=== PATIENT | male | born 1945 | race Caucasian/White ===

== ENCOUNTER → 2017-12-28 | Outpatient (CLI) | payer BC, MEDICARE ==
[2013-07-25 22:16] VITALS: BP 138/65
[~2017-12-28] MED LIST: ASPI325T8 PO; GLIM1TAB2 PO; LISI10TA2 PO; METF500T16 PO; MULT-246 PO; OMEG500C PO; SIMV40TA3 PO
--- NOTE | 2017-12-28 16:56 | RAD ---
Examination: Ultrasound testis HISTORY: History of testicular pain COMPARISON: 10/04/2013 FINDINGS: The right testis measures 3.9 x 2.7 x 2.0 cm. The left testis measures 3.3 x 2.2 x 1.8 cm. 4.8 mm cystic structures identified in the right epididymis. 2.8 cm cystic structure with echogenicities identified in the left epididymis. Small cystic changes identified in the left testis probably intracuticular testicular cysts. Multiple tortuous structures identified superior to the left testis in the scrotal region likely varicocele. Blood flow identified in the right and left testis. IMPRESSION: 1. 2.8 cm cyst identified in the left epididymis and could be a spermatocele or epididymal cyst. 2. Left-sided varicocele. 3. Tiny right epididymal head cyst. Electronically signed by: Stephen Adair MD (12/28/2017 4:53 PM) [place] [id number]
== END | disposition home or self-care (01) ==
LOC: US 12:23
PROVIDERS: ATTEND Family Medicine
DX: I86.1 Scrotal varices (principal)
CPT/HCPCS: 76870

== ENCOUNTER → 2018-01-06 | Outpatient (CLI) | payer BC, MEDICARE ==
[2013-07-25 22:16] VITALS: BP 138/65
--- NOTE | 2018-01-06 17:04 | RAD ---
PA and lateral chest radiograph. History: Cough. Comparison: February 10, 2007. Findings: Cardiomediastinal silhouette is within normal limits for size. Bilateral lung abdalla appear clear without evidence of infiltrate, effusion, or pneumothorax. Median sternotomy wires are present. Multiple thoracic levels demonstrate marginal disc osteophytes. Impression: 1. No acute cardiopulmonary process. Electronically signed by: Jamie Salas MD (01/06/2018 5:01 PM) [place] [id number]
--- NOTE | 2018-01-06 17:24 | RAD ---
LUMBAR SPINE 2-3V History: low back pain and weakness in legs. Comparison: None. Findings: 3 views of the lumbar spine are submitted. Lumbar vertebral body stature is overall maintained. There is minimal posterior subluxation L2 relative L3 and L1 relative L2. There is [id number] degenerative disc disease greatest at L4-5 and L3-4 and to a somewhat lesser degree at L5-S1 and minimally L2-3 and L1-2. There is multilevel lumbar facet degenerative change. There is multilevel spondylosis greatest T12-L1 through L3-4. There is atherosclerotic calcification abdominal aorta. Impression: 1. There is multilevel [id number] degenerative disc disease greatest L3-4 and L4-5 and to lesser degree at other levels. There is minimal posterior subluxation L2 relative L3 and L1 relative L2. There is multilevel lumbar facet degenerative change. Electronically signed by: Dejon Savage MD (01/06/2018 5:20 PM) [id number]
--- NOTE | 2018-01-06 17:40 | RAD ---
CERVICAL SPINE 2-3V History: Neck pain, shoulder pain greater on the left. Comparison: November 11, 2007 Findings: 4 views of the cervical spine are submitted. There is advanced degenerative disc disease C5-6 and C6-7 with spondylosis at the same levels, C7-T1 poorly seen on lateral views due to overlying bone and soft tissues. There is multilevel facet degenerative change, more significant superiorly. There is adequate alignment of the lateral masses C1 relative to C2. Impression: 1. There is more advanced degenerative disc disease and spondylosis C5-6 and C6-7. There is multilevel facet degenerative change. Electronically signed by: Dejon Savage MD (01/06/2018 5:36 PM) [id number]
== END | disposition home or self-care (01) ==
LOC: RAD 15:39
PROVIDERS: ATTEND Physician Assistant Medical
DX: M51.36 Other intervertebral disc degeneration, lumbar region (principal); M47.896 Other spondylosis, lumbar region; M50.322 Other cervical disc degeneration at C5-C6 level; M47.892 Other spondylosis, cervical region; M25.78 Osteophyte, vertebrae; I70.0 Atherosclerosis of aorta; G89.29 Other chronic pain
CPT/HCPCS: 71046; 72040; 72100

== ENCOUNTER → 2020-03-18 | Outpatient (CLI) | payer BC, MEDICARE ==
[2013-07-25 22:16] VITALS: BP 138/65
[~2020-03-18] MED LIST changes: -GLIM1TAB2 PO; +GLIM1TAB7 PO; +LISI10TA16 PO; -LISI10TA2 PO; +SIMV40TA18 PO; -SIMV40TA3 PO
--- NOTE | 2020-03-18 10:58 | RAD ---
EXAM: 1. ULTRASOUND ABDOMINAL AORTA. 2. LOWER EXTREMITY ARTERIAL DOPPLER SONOGRAM WITH ANKLE-BRACHIAL INDICES (JANA). HISTORY: Decreased pedal pulses, diabetes, claudication, coronary artery disease. TECHNIQUE: Grayscale and Doppler sonographic evaluation of the abdominal aorta, lower extremities was performed and pressure readings were assessed. FINDINGS: Proximally, the abdominal aorta is obscured. No aneurysm is identified. In its midportion, it measures 2.3 x 2.3 cm. Distally, 2.1 x 2.0 cm. There is moderate atherosclerotic irregularity with out evidence of abdominal aortic stenosis. The right common iliac artery measures 1.0 cm. The left measures 1.3 cm. There is no evidence of common iliac stenosis on Doppler. On the right, there are triphasic waveforms through the midportion of the superficial femoral artery. They appear to become monophasic within the popliteal artery. They are blunted and monophasic within the distal posterior tibial and dorsalis pedis arteries. On the left, waveforms are triphasic through the proximal popliteal artery. They become monophasic wi thin the posterior tibial and peroneal arteries, and either biphasic or triphasic in the proximal ant erior tibial artery. They are monophasic within the distal posterior tibial and dorsalis pedis arteri es. Right brachial pressure: 131 mmHg Left brachial pressure: 142 mmHg Right ankle pressure: 138 mmHg Right ankle JANA: 0.97 Left ankle pressure: 145 mmHg Left ankle JANA: 1.02 IMPRESSION: 1. No abdominal aortic aneurysm. The proximal abdominal aorta is not well visualized. 2. Significantly flow-limiting stenosis within the trifurcation vessels on the right greater than lef t. The distal posterior tibial and dorsalis pedis arteries are patent bilaterally with postobstructiv e waveforms. 3. Ankle brachial indices are borderline decreased on the right and normal on the left. Electronically signed by: Mckenzie Retana MD (03/18/2020 10:56 AM) [id number]
== END ==
LOC: US 08:18
PROVIDERS: ATTEND Family Medicine
DX: I73.9 Peripheral vascular disease, unspecified (principal); I25.10 Atherosclerotic heart disease of native coronary artery without angina pectoris; R09.89 Other specified symptoms and signs involving the circulatory and respiratory systems
CPT/HCPCS: 76770; 93922; 93925